=== PATIENT | female | born 2005 | race Caucasian/White ===

== ENCOUNTER 2023-11-11 20:08 | Emergency (ER) | payer BC ==
[2023-11-11] MEDS ORDERED: Ibuprofen 800 MG TAB ONE (20:38)
[2023-11-11] MEDS ORDERED: diphenhydrAMINE 25 MG CAP ONE (20:38)
== END 2023-11-11 20:44 | disposition home or self-care (01) ==
LOC: ERS 20:08
DX: J02.9 Acute pharyngitis, unspecified (principal)
CPT/HCPCS: 99282